=== PATIENT | male | born 1970 ===

== ENCOUNTER 2016-09-05 11:06 | Observation (INO) | payer OTHER ==
--- NOTE | 2016-09-05 12:04 | C.PDOC ---
History Of Present Illness 46 y/o male presents to ED with complaints of onset Vertigo worse with head movement since yesterday and N/V/D begining today. Patient also complaints of chronic epigastric pain for "one year" unchanged from usual. Patient denies focal weakness, headache, fever or any other complaints at this time. Time Seen by Provider: 09/05/16 11:28 Chief Complaint (Nursing): Abdominal Pain History Per: Patient History/Exam Limitations: no limitations Onset/Duration Of Symptoms: Days Current Symptoms Are (Timing): Still Present Past Medical History Reviewed: Historical Data, Nursing Documentation, Vital Signs Vital Signs: Last Vital Signs Temp 97.9 F 09/05/16 11:17 Pulse 74 09/05/16 14:21 Resp 18 09/05/16 14:21 BP 117/67 09/05/16 14:21 Pulse Ox 100 09/05/16 14:21 Family History: States: Unknown Family Hx - Social History Hx Alcohol Use: Yes Hx Substance Use: No - Immunization History Hx Tetanus Toxoid Vaccination: No Hx Influenza Vaccination: No Hx Pneumococcal Vaccination: No Review Of Systems Except As Marked, All Systems Reviewed And Found Negative. Constitutional: Negative for: Fever, Chills Cardiovascular: Negative for: Chest Pain Respiratory: Negative for: Shortness of Breath Gastrointestinal: Positive for: Nausea, Vomiting, Abdominal Pain, Diarrhea Genitourinary: Negative for: Dysuria Neurological: Positive for: Dizziness. Negative for: Weakness, Headache Physical Exam - Physical Exam Appears: Non-toxic, No Acute Distress Skin: Normal Color, Warm Head: Atraumatic, Normacephalic Eye(s): right: Other (Fast Horizontal Nystagmus w/reproducing Vertigo) Oral Mucosa: Moist Neck: Normal ROM Cardiovascular: Rhythm Regular Respiratory: No Rales, No Rhonchi, No Wheezing Gastrointestinal/Abdominal: Soft, No Tenderness, No Guarding, No Rebound Extremity: Normal ROM, Capillary Refill (< 2 seconds) Neurological/Psych: Other (Neuro focal intact) ED Course And Treatment - Laboratory Results Result Diagrams: 09/05/16 12:35 09/05/16 12:35 ECG: Interpreted By Me ECG Rhythm: Sinus Bradycardia ECG Interpretation: No Acute Changes Interpretation Of ECG: Sinus Bradycardia. Left anterior Fascicular block Rate From EC (bpm) O2 Sat by Pulse Oximetry: 99 (RA) Pulse Ox Interpretation: Normal - Other Rad CXR X-Ray: Interpreted by Me Interpretation: Accession No. : [id number]. Patient Name / ID : JESSICA MOORE / [id number]. Exam Date : 09/05/2016 12:08:39 ( Approved ). Study Comment : Sex / Age : M / 46Y. Creator : ELIE MARTINEZ. Dictator : Marisol Mix MD. Numerical Control Router Operator : Science Consultant : Marisol Mix MD. Approver2 : Report Date : 09/05/2016 12:17:50. My Comment : . HISTORY: SOB. COMPARISON: None available. TECHNIQUE: Chest, one view. FINDINGS: LUNGS: No focal consolidation. Please note that chest x-ray has limited sensitivity for the detection of pulmonary masses. PLEURA: No significant pleural effusion identified. No definite pneumothorax . CARDIOVASCULAR: The cardiomediastinal silhouette appears within normal limits of size. OSSEOUS STRUCTURES: No acute osseous abnormality identified. VISUALIZED UPPER ABDOMEN : Unremarkable. OTHER FINDINGS: None. IMPRESSION: No focal consolidation, significant pleural effusion, or definite pneumothorax identified. - CT Scan/US Head w/o contrast Other Rad Studies (CT/US): Interpreted By Me, Read By Radiologist CT/US Interpretation: Accession No. : [id number]. Patient Name / ID : JESSICA MOORE / [id number]. Exam Date : 09/05/2016 12:42:11 ( Approved ). Study Comment : Sex / Age : M / 46Y. Creator : Marisol Mix MD. Dictator : Marisol Mix MD. Numerical Control Router Operator : Science Consultant : Marisol Mix MD. Approver2 : Report Date : 09/05/2016 12:53:05. My Comment : . PROCEDURE: CT HEAD WITHOUT CONTRAST. HISTORY: VERTIGO. COMPARISON: None available. TECHNIQUE: Axial computed tomography images were obtained through the head/brain without intravenous contrast. Radiation dose: Total exam DLP = 886.73 mGy-cm. This CT exam was performed using one or more of the following dose reduction techniques: Automated exposure control, adjustment of the mA and/or kV according to patient size, and/or use of iterative reconstruction technique. FINDINGS: HEMORRHAGE: No intracranial hemorrhage. BRAIN: No mass effect or edema. Carver-white matter differentiation appears intact.Please note that MRI with diffusion imaging is more sensitive in the detection of acute ischemic event. VENTRICLES: No hydrocephalus. CALVARIUM: Unremarkable. PARANASAL SINUSES: Unremarkable as visualized. No significant inflammatory changes. MASTOID AIR CELLS: Unremarkable as visualized. No inflammatory changes. OTHER FINDINGS: None. IMPRESSION: No acute intracranial pathology identified. ED OBSERVATION Discharge: Yes Date of observation admission: 09/05/16 Time of observation admission: 11:30 - Observation admission statement Patient is being placed in observation because:: VERTIGO, [place]; CHRONIC ABD PAIN - Goals of Observation Goals of observation are:: SX IMPROVE - Progress Note Progress Note: 09/05/16 15:00 IMPROVED. AMBUL WO DIFF. 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 MD/DO has examined the patient and agrees with the treatment plan. - Scribe Statement The provider has reviewed the documentation as recorded by the Estela Cochran All medical record entries made by the Estela were at my direction and personally dictated by me. I have reviewed the chart and agree that the record accurately reflects my personal performance of the history, physical exam, medical decision making, and the department course for this patient. I have also personally directed, reviewed, and agree with the discharge instructions and disposition.
--- NOTE | 2016-09-05 12:39 | RAD ---
HISTORY: SOB COMPARISON: None available. TECHNIQUE: Chest, one view. FINDINGS: LUNGS: No focal consolidation. Please note that chest x-ray has limited sensitivity for the detection of pulmonary masses. PLEURA: No significant pleural effusion identified. No definite pneumothorax . CARDIOVASCULAR: The cardiomediastinal silhouette appears within normal limits of size. OSSEOUS STRUCTURES: No acute osseous abnormality identified. VISUALIZED UPPER ABDOMEN: Unremarkable. OTHER FINDINGS: None. IMPRESSION: No focal consolidation, significant pleural effusion, or definite pneumothorax identified.
[2016-09-05 12:46] LABS: EOS # 0.3 K/uL (0.0-0.7); EOS % 1.6 % (0.0-4.0); HEMATOCRIT 45.4 % (35.0-51.0); LYMPH # 1.9 K/uL (1.0-4.3); LYMPH % 10.7 % (20.0-40.0); MEAN CELL VOLUME 89.3 fL (80.0-94.0); MEAN CORPUSCULAR HGB CONC 33.6 g/dL (33.0-37.0); MEAN PLATELET VOLUME 9.7 fL (7.2-11.7); MONO # 3.2 K/uL (0.0-0.8); MONO % 17.9 % (0.0-10.0); RED CELL DISTRIBUTION WIDTH 13.8 % (11.5-14.5)
[2016-09-05 12:53] LABS: CHLORIDE 102 mmol/L (98-107); POTASSIUM 4.3 mmol/L (3.6-5.2); RBC URINE < 1 /hpf (0-3); SODIUM 139 mmol/L (132-148); URINE BILIRUBIN NEGATIVE (NEGATIVE); URINE BLOOD NEGATIVE (NEGATIVE); URINE COLOR Yellow (YELLOW); URINE GLUCOSE (UA) NORMAL (Normal); URINE KETONE NEGATIVE (NEGATIVE); URINE LEUKOCYTE ESTERASE NEG Leu/uL (Negative); URINE PROTEIN NEGATIVE (NEGATIVE); URINE UROBILINOGEN NORMAL mg/dL (0.2-1.0); WBC URINE < 1 /hpf (0-5)
[2016-09-05 12:54] LABS: WHITE BLOOD COUNT 17.8 K/uL (4.8-10.8)
--- NOTE | 2016-09-05 12:54 | CT ---
PROCEDURE: CT HEAD WITHOUT CONTRAST. HISTORY: VERTIGO COMPARISON: None available. TECHNIQUE: Axial computed tomography images were obtained through the head/brain without intravenous contrast. Radiation dose: Total exam DLP = 886.73 mGy-cm. This CT exam was performed using one or more of the following dose reduction techniques: Automated exposure control, adjustment of the mA and/or kV according to patient size, and/or use of iterative reconstruction technique. FINDINGS: HEMORRHAGE: No intracranial hemorrhage. BRAIN: No mass effect or edema. Carver-white matter differentiation appears intact.Please note that MRI with diffusion imaging is more sensitive in the detection of acute ischemic event. VENTRICLES: No hydrocephalus. CALVARIUM: Unremarkable. PARANASAL SINUSES: Unremarkable as visualized. No significant inflammatory changes. MASTOID AIR CELLS: Unremarkable as visualized. No inflammatory changes. OTHER FINDINGS: None. IMPRESSION: No acute intracranial pathology identified.
[2016-09-05 12:55] LABS: GFR AFRICAN-AMERICAN > 60
[2016-09-05 12:56] LABS: ALB/GLOB RATIO 1.5 (1.0-2.1); ALKALINE PHOSPHATASE 148 U/L (38-126); ALT/SGPT 23 U/L (21-72); AST/SGOT 30 U/L (17-59); BLOOD UREA NITROGEN 14 mg/dL (9-20); CALCIUM 9.2 mg/dl (8.6-10.4); CARBON DIOXIDE 25 mmol/L (22-30); GLUCOSE,RANDOM 115 mg/dL (75-110)
[2016-09-05 12:57] LABS: ALCOHOL SERUM < 10 mg/dl (0-10)
[2016-09-05 14:22] VITALS: RESP 18
[2016-09-05 15:22] VITALS: BP 122/77; PULSE 78; TEMP 97.8; O2SAT 96
--- NOTE | 2016-09-06 17:44 | CARD ---
APPROVED REPORT EKG Measurement Heart [id number] <Conclusion> Sinus bradycardia Left anterior fascicular block Abnormal ECG
== END 2016-09-05 15:01 | disposition home or self-care (01) ==
LOC: C.ER 11:06 → C.9OBSV 11:30
PROVIDERS: ADMIT Emergency Medicine; ATTEND Emergency Medicine
DX: R42 Dizziness and giddiness (principal); R11.2 Nausea with vomiting, unspecified; F12.10 Cannabis abuse, uncomplicated
CPT/HCPCS: 36415; 70450; 71010; 80053; 81001; 83690; 85025; 96374; G0378; G0480; J2405

== ENCOUNTER 2017-10-25 23:29 | Emergency (ER) | payer SELFPAY ==
[2017-10-25] MEDS ORDERED: Sodium Chloride 0.9% 1,000 ML ONE (23:46)
[2017-10-25] MEDS ORDERED: DiphenhydrAMINE 50 mg/ml Inj ONE (23:46)
[2017-10-25] MEDS ORDERED: Sodium Chloride 0.9% 1,000 ML IV ONE (23:49)
[2017-10-25] MEDS ORDERED: MethylPREDNISolone 40 mg Vial IVP STA (23:49)
[2017-10-25] MEDS ORDERED: DiphenhydrAMINE 50 mg/ml Inj IVP STA (23:49)
--- NOTE | 2017-10-25 23:54 | C.PDOC ---
History Of Present Illness 47 year old male presents to the emergency department with complaints of diffuse body rash, itching, and mild shortness of breath status-post eating at [employer]. Patient states that he has multiple food allergies, but doesn't know what caused his current symptoms. Time Seen by Provider: 10/25/17 23:52 Chief Complaint (Nursing): Allergic Reaction History Per: Patient History/Exam Limitations: no limitations Onset/Duration Of Symptoms: Hrs Current Symptoms Are (Timing): Still Present Context: Food Possible Cause: Food Associated Symptoms: Skin Rash, Itching, Other (mild shortness of breath) Severity: Mild Pain Scale Rating Of: 4 Past Medical History Reviewed: Historical Data, Nursing Documentation, Vital Signs Vital Signs: Last Vital Signs Temp 98.8 F 10/25/17 23:36 Pulse 112 H 10/25/17 23:36 Resp 22 10/25/17 23:36 BP 137/90 10/25/17 23:36 Pulse Ox 96 10/26/17 03:01 - Medical History PMH: No Chronic Diseases Surgical History: No Surg Hx Family History: States: No Known Family Hx - Social History Hx Alcohol Use: Yes Hx Substance Use: No - Immunization History Hx Tetanus Toxoid Vaccination: No Hx Influenza Vaccination: No Hx Pneumococcal Vaccination: No Review Of Systems Constitutional: Negative for: Fever, Chills Cardiovascular: Negative for: Chest Pain Respiratory: Positive for: Shortness of Breath (mild) Gastrointestinal: Negative for: Nausea, Vomiting, Abdominal Pain Skin: Positive for: Rash, Other (itching) Neurological: Negative for: Weakness Psych: Negative for: Anxiety Physical Exam - Physical Exam Appears: Non-toxic Skin: Warm, Dry, Rash (diffuse urticarial rash) Head: Normacephalic Eye(s): bilateral: Normal Inspection Oral Mucosa: Moist Throat: No Erythema, No Exudate, Other (clear) Neck: Trachea Midline, Supple Chest: Symmetrical, No Tenderness Cardiovascular: Rhythm Regular, No Murmur Respiratory: No Rales, No Rhonchi, No Wheezing Gastrointestinal/Abdominal: Soft, No Tenderness, No Distention, No Guarding, No Rebound Back: Normal Inspection Extremity: Normal ROM Pulses: Left Dorsalis Pedis: Normal, Right Dorsalis Pedis: Normal Neurological/Psych: Oriented x3, Normal Speech, Normal Cognition Gait: Steady ED Course And Treatment O2 Sat by Pulse Oximetry: 96 (RA) Pulse Ox Interpretation: Normal Progress Note: Plan: Benadryl 50mg IVP. Pepcid 20mg IVP. Solu-Medrol 125mg IVP. NaCl IV Fluids Reevaluation Time: 04:40 Reassessment Condition: Improved Critical Care Time - Critical Care Note Total Time (in mins): 30 Documented critical care: time excludes all time spent performing seperately billable procedures. Disposition Counseled Patient/Family Regarding: Studies Performed, Diagnosis, Need For Followup, Rx Given - Disposition Referrals: [facility] [Outside] [facility] [Outside] Disposition: HOME/ ROUTINE Disposition Time: 23:54 Condition: FAIR Additional Instructions: Please return if symptoms recur. Also use benadryl, pepcid and claritin Prescriptions: Epinephrine [Epipen] 0.3 mg IJ ONCE PRN #2 auto.injct PRN Reason: Anaphylaxis Prednisone [Deltasone] 20 mg PO DAILY #5 tablet Instructions: Food Allergy Forms: [facility] ([place]ijani) - Clinical Impression Clinical Impression: Allergic reaction - Scribe Statement The provider has reviewed the documentation as recorded by the Scribe (Dario Lynch) Provider Attestation: All medical record entries made by the Scribe were at my direction and personally dictated by me. I have reviewed the chart and agree that the record accurately reflects my personal performance of the history, physical exam, medical decision making, and the department course for this patient. I have also personally directed, reviewed, and agree with the discharge instructions and disposition.
[2017-10-26 06:00] VITALS: BP 109/73; PULSE 87; RESP 18; TEMP 98; O2SAT 99
== END 2017-10-26 06:00 | disposition home or self-care (01) ==
LOC: C.ER 23:29
DX: L50.0 Allergic urticaria (principal)
CPT/HCPCS: 96361; 96374; 96375; 99284; J1200; J2920; J7030